=== PATIENT | male | born 1980 | race American Indian/Alaskan Native ===

== ENCOUNTER 2017-09-21 17:20 | Emergency (ER) | payer SELFPAY ==
[2017-09-21 17:36] VITALS: BP 132/96
--- NOTE | 2017-09-21 18:28 | Emergency Department Report ---
Vomiting/Diarrhea - HPI Chief Complaint: Medical Clearance Stated Complaint: FLU SX Time Seen by Provider: 09/21/17 18:23 Duration: 3 Days Severity: mild Nausea/Vomiting Severity: None Diarrhea Severity: Moderate Pain Location: Generalized Symptoms: Yes Watery Diarrhea, Yes Able to Tolerate Fluids, No Bloody diarrhea, No Fever, No Recent Unusual Foods, No Recent Untreated Water, No Recent use of Antibiotics, No Family w/ Similar Symptoms, No Contacts w/ Similar Symptoms, No Rash, No Hematuria, No Recent URI Symptoms Other History: Patient is a 37-year-old -[place] male who states she's had diarrhea for 3 days is actually improving today that he starting to eat but his job made him come in for medical clearance. Patient denies any abdominal pain at this time. ED Review of Systems ROS: Stated complaint: FLU SX Other details as noted in HPI Comment: All other systems reviewed and negative ED Past Medical Hx - Past Medical History Previous Medical History?: No - Surgical History Past Surgical History?: No - Social History Smoking Status: Current Every Day Smoker Substance Use Type: Alcohol - Medications Home Medications: Home Medications Medication Instructions Recorded Confirmed Last Taken Type No Known Home Medications [No 02/01/16 02/01/16 Unknown History Reported Home Medications] Vomiting Diarrhea Exam - Exam General: Vital signs noted. No distress. Alert and acting appropriately. HEENT: Yes Moist Mucous Membranes, No Pharyngeal Erythema, No Pharyngeal Exudates, No Rhinorrhea, No Conjuctival Injection, No Frontal Tenderness, No Maxillary Tenderness Neck: No Adenopathy, No Rigidity Lungs: Yes Clear Lung Sounds, Yes Good Air Exchange, No Wheezes, No Stridor, No Cough, No Nasal Flaring, No Retractions, No Use of Accessory Muscles Heart exam: Regular: Yes, Murmur: No, Tachycardia: No Abdomen: Tenderness: No, Peritoneal Signs: No, Distention: No, Hyperactive Bowel sounds: No Skin exam: Rash: No, Edema: No, Normal turgor: Yes Neurologic: Alert and oriented, no deficits. Musculoskeletal: Unremarkable. ED Course Vital Signs 09/21/17 17:33 Temperature 98.5 F Pulse Rate 96 H Respiratory 18 Rate Blood Pressure 132/96 O2 Sat by Pulse 97 Oximetry Critical care attestation.: If time is entered above; I have spent that time in minutes in the direct care of this critically ill patient, excluding procedure time. ED Disposition Clinical Impression: Diarrhea Qualifiers: Diarrhea type: unspecified type Qualified Code(s): R19.7 - Diarrhea, unspecified Disposition: DC-01 TO HOME OR SELFCARE Is pt being admited?: No Does the pt Need Aspirin: No Condition: Stable Instructions: Acute Diarrhea (ED) Referrals: PRIMARY CARE, [Primary Care Provider] - 3-5 Days Forms: Work/School Release Form(ED)
== END 2017-09-21 18:35 | disposition home or self-care (01) ==
LOC: ED 17:20
DX: R19.7 Diarrhea, unspecified (principal); F17.200 Nicotine dependence, unspecified, uncomplicated
CPT/HCPCS: 99282

== ENCOUNTER 2019-01-19 14:04 | Emergency (ER) | payer OTHER ==
--- NOTE | 2019-01-19 14:15 | Event Note ---
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 Further treatment and workup at subsequent clinical providers discretion. Patient/guardian urged not to elope from the ED as their condition may be serious if not clinically assessed and managed. Initial orders include: XR of the c-spine
[2019-01-19 14:16] VITALS: BP 138/94
--- NOTE | 2019-01-19 15:39 | XRay Report ---
PROCEDURE: XR SPINE CERVICAL 2-3V HISTORY: right sided neck pain AP, lateral and open-mouth views of the cervical spine were acquired. No fracture is seen in the cerv ical spine. There is anterior endplate remodeling at C5-C6. The prevertebral soft tissues are within normal limits. IMPRESSION: No fracture is seen in the cervical spine This document is electronically signed by Christopher Norwood MD., January 19 2019 03:37:05 PM ET
--- NOTE | 2019-01-19 16:01 | Emergency Department Report ---
ED Neck Pain/Injury HPI - General Chief Complaint: Neck Pain/Injury Stated Complaint: NECK/BACK PAIN Time Seen by Provider: 01/19/19 14:14 Mode of arrival: Ambulatory Limitations: No Limitations - History of Present Illness Initial Comments: Patient is a 38-year-old black male who is presenting with neck pain. 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 States yesterday he turned his head and felt a popping sensation he has some increased pain in the lower C- spine region with radiation into the right arm. Patient states when he turns his head to the right the pain is no worse. Patient states the radiation is worse as well. Patient states is 9 out of 10 severity at its worst. He denies any syncope fevers chills nausea vomiting difficulty swallowing or sore throat. - Related Data Previous Rx's Medication Instructions Recorded Last Taken Type Polymyxin B Sulf/Trimethoprim 1 drop OS Q3HR 7 Days #10 ml 01/17/18 Unknown Rx [Polytrim Eye Drops] methOCARBAMOL [Robaxin TAB] 500 mg PO Q6H PRN #14 tablet 01/19/19 Unknown Rx predniSONE [Deltasone] 20 mg PO QDAY #5 tab 01/19/19 Unknown Rx traMADol [Ultram] 50 mg PO Q6HR PRN #12 tablet 01/19/19 Unknown Rx Allergies Allergy/AdvReac Type Severity Reaction Status Date / Time No Known Allergies Allergy Verified 01/19/19 14:07 ED Review of Systems ROS: Stated complaint: NECK/BACK PAIN Other details as noted in HPI Comment: All other systems reviewed and negative ED Past Medical Hx - Past Medical History Previous Medical History?: No - Surgical History Past Surgical History?: No - Social History Smoking Status: Current Every Day Smoker Substance Use Type: Alcohol - Medications Home Medications: Home Medications Medication Instructions Recorded Confirmed Last Taken Type Polymyxin B Sulf/Trimethoprim 1 drop OS Q3HR 7 Days #10 ml 01/17/18 Unknown Rx [Polytrim Eye Drops] methOCARBAMOL [Robaxin TAB] 500 mg PO Q6H PRN #14 tablet 01/19/19 Unknown Rx predniSONE [Deltasone] 20 mg PO QDAY #5 tab 01/19/19 Unknown Rx traMADol [Ultram] 50 mg PO Q6HR PRN #12 tablet 01/19/19 Unknown Rx ED Physical Exam - General Limitations: No Limitations General appearance: alert, in no apparent distress - Head Head exam: Present: atraumatic, normocephalic - Eye Eye exam: Present: normal appearance - ENT ENT exam: Present: mucous membranes moist - Neck Neck exam: Present: normal inspection, tenderness, full ROM - Respiratory Respiratory exam: Present: normal lung sounds bilaterally. Absent: respiratory distress, wheezes, rales, rhonchi - Cardiovascular Cardiovascular Exam: Present: regular rate, normal rhythm. Absent: systolic murmur, diastolic murmur, rubs, gallop - GI/Abdominal GI/Abdominal exam: Present: soft, normal bowel sounds. Absent: distended, tenderness, guarding, rebound - Rectal Rectal exam: Present: deferred - Extremities Exam Extremities exam: Present: normal inspection - Back Exam Back exam: Present: normal inspection - Neurological Exam Neurological exam: Present: alert, oriented X3 - Psychiatric Psychiatric exam: Present: normal affect, normal mood - Skin Skin exam: Present: warm, dry, intact, normal color. Absent: rash ED Course Vital Signs 01/19/19 14:14 Temperature 98 F Pulse Rate 89 Respiratory 16 Rate Blood Pressure 138/94 O2 Sat by Pulse 99 Oximetry ED Medical Decision Making - Radiology Data [facility] [address] [place] [address] XRay Report Signed Patient: WALTER MEJIA MR# : [id number] : 1980 Acct:[id number] Age/Sex: 38 / M ADM Date: 01/19/19 Loc: ED Attending Dr: Ordering Physician: SHARON ARMANDO Date of Service: 01/19/19 Procedure(s): XR spine cervical 2-3V Accession Number(s): [id number] cc: SHARON ARMANDO Fluoro Time In Minutes: PROCEDURE: XR SPINE CERVICAL 2-3V HISTORY: right sided neck pain AP, lateral and open-mouth views of the cervical spine were acquired. No fracture is seen in the cervical spine. There is anterior endplate remodeling at C5-C6. The prevertebral soft tissues are within normal limits. IMPRESSION: No fracture is seen in the cervical spine This document is electronically signed by Christopher Norwood MD., January 19 2019 03:37:05 PM ET Transcribed By: ASHLEY Dictated By: CHRISTOPHER NORWOOD MD Electronically Authenticated By: CHRISTOPHER NORWOOD MD Signed Date/Time: 01/19/19 1539 DD/ 1450 TD/TT: 01/19/19 1450 - Medical Decision Making Patient had no acute fracture on x-ray. Patient likely with a herniated disc in cervical radiculopathy. Patient given meds for symptomatic relief and be referred to orthopedics. Critical care attestation.: If time is entered above; I have spent that time in minutes in the direct care of this critically ill patient, excluding procedure time. ED Disposition Clinical Impression: Cervical radiculopathy Disposition: - TO HOME OR SELFCARE Is pt being admited?: No Does the pt Need Aspirin: No Condition: Stable Instructions: Cervical Radiculopathy (ED) Referrals: JENY KIM MD [Staff Physician] - 3-5 Days Time of Disposition: 16:01
== END 2019-01-19 16:11 | disposition home or self-care (01) ==
LOC: ED 14:04
DX: M54.12 Radiculopathy, cervical region (principal); F17.200 Nicotine dependence, unspecified, uncomplicated
CPT/HCPCS: 72040

== ENCOUNTER 2020-06-07 13:19 | Emergency (ER) | payer OTHER ==
[2020-06-07 13:36] VITALS: BP 153/99
== END 2020-06-07 14:55 | disposition left against medical advice (07) ==
LOC: ED 13:19
DX: R07.89 Other chest pain (principal); Z53.21 Procedure and treatment not carried out due to patient leaving prior to being seen by health care provider